=== PATIENT | female | born 1940 | race Caucasian/White ===

== ENCOUNTER 2019-03-18 14:55 | Outpatient (CLI) | payer MEDICARE, MEDICAID, SELFPAY ==
--- NOTE | 2019-03-18 15:12 | XRR_ITS ---
PROCEDURE INFORMATION: Exam: XR Chest, 2 Views Exam date and time: 03/18/2019 3:13 PM Age: 78 years old Clinical indication: Cough TECHNIQUE: Imaging protocol: XR of the chest Views: 2 views. COMPARISON: No relevant prior studies available. FINDINGS: Lungs: Unremarkable. No consolidation. Pleural space: Unremarkable. No pleural effusion. No pneumothorax. Heart/Mediastinum: Unremarkable. No cardiomegaly. Bones/joints: Unremarkable. XR/XR chest 2V* [id number] IMPRESSION: No acute findings.
== END 2019-03-18 14:56 | disposition home or self-care (01) ==
LOC: RAD 15:08
PROVIDERS: Family Provider Nurse Practitioner; PCP Nurse Practitioner; Visit Provider Nurse Practitioner
DX: R05 Cough (principal)
CPT/HCPCS: 71046

== ENCOUNTER → 2019-10-14 12:22 | Outpatient (BNVA) | payer MEDICARE, MEDICAID, SELFPAY | PROVIDERS: Family Provider Nurse Practitioner; PCP Nurse Practitioner; Visit Provider Family Medicine | DX: J45.51 Severe persistent asthma with (acute) exacerbation (principal); I10 Essential (primary) hypertension; E11.9 Type 2 diabetes mellitus without complications; J43.9 Emphysema, unspecified; R06.02 Shortness of breath | CPT/HCPCS: 36415; 71046; 80053; 83036; 85025 ==

== ENCOUNTER → 2021-06-01 15:49 | Outpatient (BNVA) | payer MEDICARE, MEDICAID, SELFPAY | PROVIDERS: Family Provider Nurse Practitioner; PCP Nurse Practitioner; Visit Provider Obstetrics & Gynecology | DX: N95.0 Postmenopausal bleeding (principal); N85.4 Malposition of uterus | CPT/HCPCS: 76830 ==

== ENCOUNTER → 2021-06-08 16:51 | Outpatient (BNVA) | payer MEDICARE, MEDICAID, SELFPAY | PROVIDERS: Family Provider Nurse Practitioner; PCP Nurse Practitioner; Visit Provider Obstetrics & Gynecology | DX: N95.0 Postmenopausal bleeding (principal); Z01.812 Encounter for preprocedural laboratory examination | CPT/HCPCS: 80053; 81000; 85025; 86850; 86900 ==

== ENCOUNTER 2021-06-17 06:40 | Day surgery (SDC) | payer MEDICARE, MEDICAID, SELFPAY ==
[2021-06-17] VITALS (10 sets, daily range): BP systolic 151–197; BP diastolic 75–102; PULSE 59–78; RESP 14–18; TEMP 36.5–37.1; O2SAT 90–98
--- NOTE | 2021-06-17 07:59 | ANES.PREANE2 ---
Pre-Anesthetic Assessment Height/Weight: Height 1.73 m Weight 99.79 kg Temp Pulse Resp BP Pulse Ox 97.7 F 62 16 161/84 95 06/17/21 07:25 06/17/21 07:25 06/17/21 07:25 06/17/21 07:25 06/17/21 07:25 Operation Date: 06/17/21 08:50 Proposed Procedures p Hysteroscopy, D&C w/Myosure [id number]/post menopausal bleeding N95.0(Not Applicable) - Carlos Nicole MD Familial anesthetic complications: NOne Was Beta Vy taken within 24 hours: N/A Was Clonidine taken within 24 hours: N/A Last intake: > 8hrs Social No alcohol and No tobacco second hand smoker Exam alert, oriented x 3, clear to auscultation bilaterally and regular rate & rhythm Airway Mallampati: Class II Dentition: false Pulmonary Chronic Obstructive Pulmonary Disease (Had COPD/Asthma attack over a year ago per patient, doing well with lungs since that time) CV/HEM Hypertension None reported Hepatic None reported GI None reported Metabolic Diabetes Mellitus [facility] None reported Neuropsych None reported Anesthetic Plan ASA status: 2 Anesthesia: General Risk of > 500 ml blood loss (7ml/kg in children): No Medications/Allergies Home Medications Medication Instructions Recorded Confirmed Last Taken Type albuterol sulfate 90 mcg/actuation 2 puff INHALATION Q6H PRN 10/14/19 06/17/21 06/16/21 History aerosol inhaler (ProAir HFA) alprazolam 0.5 mg tablet (Xanax) 0.5 mg PO .at HS PRN tab 10/14/19 06/17/21 06/16/21 20:00 History amlodipine 5 mg tablet 5 mg PO DAILY 10/14/19 06/17/21 06/16/21 08:00 History cetirizine 10 mg tablet (All Day 10 mg PO DAILY PRN tab 10/14/19 06/17/21 06/15/21 History Allergy (cetirizine)) ergocalciferol (vitamin D2) 1,250 1,250 mcg PO .week cap 10/14/19 06/17/21 06/10/21 History mcg (50,000 unit) capsule furosemide 20 mg tablet 20 mg PO DAILY 10/14/19 06/17/2106/16/22 08:00 History metformin 1,000 mg tablet 1,000 mg PO BID 10/14/19 06/17/21 06/16/21 08:00 History mirabegron 25 mg tablet,extended 25 mg PO DAILY 10/14/19 06/17/21 06/16/21 History release 24 hr (Myrbetriq) olmesartan 40 1 tab PO DAILY 10/14/19 06/17/21 06/16/21 08:00 History mg-hydrochlorothiazide 12.5 mg tablet propranolol 80 mg tablet 80 mg PO TID 10/14/19 06/17/21 06/16/21 20:00 History semaglutide 1 mg/dose (2 mg/1.5 SUBCUT .weekly ml 11/13/19 06/08/21 06/12/21 History mL) subcutaneous pen injector (Ozempic) celecoxib 200 mg capsule (Celebrex) 200 mg PO DAILY 05/21/21 06/17/21 06/16/21 08:00 History insulin degludec [Tresiba SUBCUT DAILY 05/21/21 06/08/21 06/16/21 08:00 History FlexTouch U-200] Allergies Allergy/AdvReac Type Severity Reaction Status Date / Time Penicillins Allergy Intermediate rash Verified 06/14/21 10:49 codeine AdvReac Severe ADR-Nausea Verified 06/14/21 10:49 [facility] Anesthesia Family History (Updated 05/21/21 @ 14:47 by Mari Oliva RN) Father Clotting disorder Mother Diabetes Hypertension Heart disease Stroke Thyroid condition Family/Other Hyperlipidemia maternal aunt Hypertension maternal aunts Heart disease maternal aunt Thyroid condition maternal aunt Grandfather Diabetes maternal Denies family history of Colon cancer Ovarian cancer Breast cancer Anesthesia complication Bleeding disorder Uterine cancer Social History Smoking and tobacco status: never smoked Alcohol intake: never Data Anesthesia Cardiac Studies: No Data to Display
[2021-06-17 08:00] LABS: Glucose Point of Care 126 mg/dL (70-110)
[2021-06-17] MEDS: sodium chloride 0.9% 1,000 ML 30 ML IV (08:09)
--- NOTE | 2021-06-17 08:29 | W.PM.OPSUD ---
Surgery/Procedure H&P Update DATE OF PROCEDURE: June 17, 2021 DATE H&P PERFORMED: 06/08/21 H&P UPDATE INFORMATION: I have reviewed H&P completed within last 30 days, I have examined patient prior to procedure and No changes to prior documentation PREOP DIAGNOSIS: Postmenopausal bleeding PLANNED PROCEDURE: Operation Date: 06/17/21 08:50 Proposed Procedures p Hysteroscopy, D&C w/Myosure [id number]/post menopausal bleeding N95.0(Not Applicable) - Carlos Nicole MD
[2021-06-17] MEDS: vancomycin 1,000 MG in sodium chloride 0.9% 250 ML 250 MG IV (08:50)
[2021-06-17] MEDS: scopolamine 1.5 Patch 1 PATCH TRANSDERMA (08:57)
--- NOTE | 2021-06-17 09:41 | PM.OP ---
Operative Report Date of procedure: June 17, 2021 Pre-op diagnosis: Preop Diagnosis Postmenopausal bleeding Post-op diagnosis: Same as above Procedure done: Hysteroscopy. Hysteroscopic polypectomy via MyoSure. Specimens removed/disposition: Endometrial polyp Pathology: Endometrial polyp Surgeon: Carlos Nicole MD Estimated blood loss (mL): 10 IV fluids (mL): 400 Complications: None Findings: Multiple endometrial polyps Brief History: Mrs. Mora 80-year-old female with postmenopausal bleeding. Procedure: After informed consent, the risks included but were not limited to bleeding, infection, injury to internal organs. The patient was counseled on a possible laparotomy and on the potential need for hysterectomy. The patient expressed understanding of the risks involved, all questions were answered, and the patient consented to the procedure. The patient was taken to the operating room where general anesthesia was administered. She was placed in the dorsal lithotomy position and prepped and draped in sterile fashion. A time out procedure was performed. The patient was examined under anesthesia and found to have a normal uterus with normal adnexa. A sterile weight speculum was placed in the vagina. The uterus was then gently sounded to 10 cm, and the cervix was dilated. The 0 degrees MyoSure hysteroscope was advanced gently to the uterine fundus while visualizing the monitor. Survey of the uterine cavity showed: Endometrial polyps arising from posterior wall, the fundus shows atrophic endometrium; left ostium was visualized, and lateral wall with atrophic endometrium; right ostium visualized, and lateral wall with atrophic endometrium; anterior and posterior sosa are with atrophic endometrium; endocervical canal is normal. The MyoSure device was advanced and the direct visualization the polyps was morcellated without complication. At the end of morcellation the fluid deficit was 425 mL and was estimated at approximately 200 mL were on the floor. There was minimal bleeding noted and the tenaculum removed with goad hemostasis noted. The patient tolerated the procedure well. The patient was taken to the recovery area in stable condition.
== END 2021-06-17 11:30 | disposition home or self-care (01) ==
PROVIDERS: PCP Nurse Practitioner; Visit Provider Obstetrics & Gynecology
PROC: 0UDB8ZZ Extraction of Endometrium, Via Natural or Artificial Opening Endoscopic (ICD-10-PCS; CPT 58558; principal; 2021-06-17 08:40)
DX: N95.0 Postmenopausal bleeding (principal); J44.9 Chronic obstructive pulmonary disease, unspecified; I10 Essential (primary) hypertension; E11.9 Type 2 diabetes mellitus without complications; Z79.4 Long term (current) use of insulin; Z79.84 Long term (current) use of oral hypoglycemic drugs
CPT/HCPCS: 58558; 36416; 82962; 88305; J2704; J3010; J3370; J7030; J7050

== ENCOUNTER → 2021-08-06 10:45 | Outpatient (BNVA) | payer MEDICARE, MEDICAID, SELFPAY | PROVIDERS: PCP Nurse Practitioner; Visit Provider Obstetrics & Gynecology | DX: Z01.812 Encounter for preprocedural laboratory examination (principal); N95.0 Postmenopausal bleeding; N85.02 Endometrial intraepithelial neoplasia [EIN] | CPT/HCPCS: 80053; 81000; 85025; 86850; 86900 ==

== ENCOUNTER 2021-08-11 08:57 | Observation (INO) | payer MEDICARE, MEDICAID, SELFPAY ==
[2021-08-06 12:14] VITALS: BMI 35.1
--- NOTE | 2021-08-06 12:31 | ECG_ITS ---
[facility] Test Date: 2021-08-06 Pat Name: Ericka Mora Department: Room: Gender: Female [employer]: : 1940 Requested By: Emliio Dickson Order Number: [id number] Antony MD: Taryn Franco M.D. Measurements Intervals [place] Rate: 71 P: -66 VA: 185 QRS: -23 QRSD: 97 T: 55 QT: 407 QTc: 445 Interpretive Statements ECTOPIC ATRIAL RHYTHM BORDERLINE LEFT AXIS DEVIATION [QRS AXIS < -20] MODERATE VOLTAGE CRITERIA FOR LVH, CONSIDER NORMAL VARIANT [MEETS CRITERIA IN ONE OF: R(aVL), S(V1), R(V5), R(V5/V6)+S(V1)] MINIMAL ST DEPRESSION [0.025+ mV ST DEPRESSION] ABNORMAL RHYTHM ECG No previous ECG available for comparison Electronically Signed On 08-06-2021 23:08:43 CDT by Taryn Franco M.D. [id number]
--- NOTE | 2021-08-06 13:18 | P.ANESASSM_ITS ---
Pre-Anesthetic Assessment Height/Weight: Height 1.73 m Weight 104.78 kg Preop Diagnosis: Postmenopausal bleeding Operation Date: 08/11/21 08:25 Proposed Procedures p Total vaginal hysterectomy, bilateral salpingo-oophorectomy 53954/N95.0/N85.02(Not Applicable) - Carlos Nicole MD s Salpingo-Oophorectomy (Vaginal)(Not Applicable) - Carlos Nicole MD Familial anesthetic complications: none Was Beta Vy taken within 24 hours: Yes Was Clonidine taken within 24 hours: N/A Social No alcohol and No tobacco Exam alert, oriented x 3, clear to auscultation bilaterally and regular rate & rhythm Airway Submandibular: within normal limits Cervical ROM: Other (limited ROM) Mallampati: Class II Dentition: partials Pulmonary Asthma and Chronic Obstructive Pulmonary Disease (Emphysema ) CV/HEM Hypertension EKG 08/06/21 Interpretive Statements ECTOPIC ATRIAL RHYTHM BORDERLINE LEFT AXIS DEVIATION? [QRS AXIS < -20] MODERATE VOLTAGE CRITERIA FOR LVH, CONSIDER NORMAL VARIANT? [MEETS CRITERIA IN ONE OF: R(aVL), S(V1), R(V5), R(V5/V6)+S(V1)] MINIMAL ST DEPRESSION? [0.025+ mV ST DEPRESSION] ABNORMAL RHYTHM ECG No previous ECG available for comparison [email or web address] [id number] Abdnormal endometrial tissue Hepatic None reported GI None reported Metabolic Diabetes Mellitus Musc/skel Osteoarthritis/DJD Neuropsych None reported Anesthetic Plan ASA status: 3 (81 year old female with hx of COPD, HTN, with abnormal endometrial tissue involving cervix ) Anesthesia: Anesthesia Evaluation and General Other: We discussed risk and benefits of general anesthesia including PONV, sore throat (sometimes severe), corneal abrasion, positioning and peripheral nerve injuries, life threatening allergic reaction, post operative ICU admission requiring prolonged intubation, aspiration, stroke, heart attack, , and rare incidences of recall. Patient consents to proceed with general anesthesia. Medications/Allergies Home Medications Medication Instructions Recorded Confirmed Last Taken Type albuterol sulfate 90 mcg/actuation 2 puff INHALATION Q6H PRN 10/14/19 08/06/21 06/16/21 History aerosol inhaler (ProAir HFA) alprazolam 0.5 mg tablet (Xanax) 0.5 mg PO .at HS PRN tab 10/14/19 08/06/21 06/16/21 20:00 History amlodipine 5 mg tablet 5 mg PO DAILY 10/14/19 08/06/21 06/16/21 08:00 History cetirizine 10 mg tablet (All Day 10 mg PO DAILY PRN tab 10/14/19 08/06/21 06/15/21 History Allergy (cetirizine)) ergocalciferol (vitamin D2) 1,250 1,250 mcg PO .week cap 10/14/19 08/06/21 06/10/21 History mcg (50,000 unit) capsule furosemide 20 mg tablet 20 mg PO DAILY 10/14/19 08/06/21 06/16/21 08:00 History metformin 1,000 mg tablet 1,000 mg PO BID 10/14/19 08/06/21 06/16/21 08:00 History mirabegron 25 mg tablet,extended 25 mg PO DAILY 10/14/19 08/06/21 06/16/21 History release 24 hr (Myrbetriq) olmesartan 40 1 tab PO DAILY 10/14/19 08/06/21 06/16/21 08:00 History mg-hydrochlorothiazide 12.5 mg tablet propranolol 80 mg tablet 80 mg PO TID 10/14/19 08/06/21 06/16/21 20:00 History semaglutide 1 mg/dose (2 mg/1.5 SUBCUT .weekly ml 11/13/19 08/06/21 06/12/21 History mL) subcutaneous pen injector (Ozempic) celecoxib 200 mg capsule (Celebrex) 200 mg PO DAILY 05/21/21 08/06/21 06/16/21 08:00 History insulin degludec [Tresiba SUBCUT DAILY 05/21/21 08/06/21 06/16/21 08:00 History FlexTouch U-200] acetaminophen 325 mg capsule 325 mg PO Q4H PRN #60 cap 06/17/21 08/06/21 Unknown Rx Allergies Allergy/AdvReac Type Severity Reaction Status Date / Time Penicillins Allergy Intermediate rash Verified 08/06/21 09:38 cephalexin [From Keflex] Allergy ADR-Gastrointestinal Verified 08/06/21 12:17 Upset codeine AdvReac Severe ADR-Nausea Verified 08/06/21 09:38 PFS Anesthesia Family History Father Clotting disorder Mother Diabetes Hypertension Heart disease Stroke Thyroid condition Family/Other Hyperlipidemia maternal aunt Hypertension maternal aunts Heart disease maternal aunt Thyroid condition maternal aunt Grandfather Diabetes maternal Denies family history of Colon cancer Ovarian cancer Breast cancer Anesthesia complication Bleeding disorder Uterine cancer Social History Smoking and tobacco status: never smoked Alcohol intake: never Data Anesthesia Cardiac Studies: No Data to Display
[2021-08-11] VITALS (22 sets, daily range): BP systolic 117–166; BP diastolic 67–99; PULSE 52–92; RESP 8–18; TEMP 36.2–37; O2SAT 90–97; BMI 35.1
--- NOTE | 2021-08-11 06:31 | W.PM.OPSUD ---
Surgery/Procedure H&P Update DATE OF PROCEDURE: August 11, 2021 DATE H&P PERFORMED: 08/06/21 H&P UPDATE INFORMATION: I have reviewed H&P completed within last 30 days, I have examined patient prior to procedure and No changes to prior documentation PREOP DIAGNOSIS: Endometrial Complex hyperplasia with atypia PLANNED PROCEDURE: Operation Date: 08/11/21 07:00 Proposed Procedures p Total vaginal hysterectomy, bilateral salpingo-oophorectomy 61960/N95.0/N85.02(Not Applicable) - Carlos Nicole MD s Salpingo-Oophorectomy (Vaginal)(Not Applicable) - Carlos Nicole MD
--- NOTE | 2021-08-11 06:38 | P.ANESUD_ITS ---
Pre-Anesthetic Update Pre-Anesthetic Assessment: Date of Surgery/Procedure: 08/11/21 Preop Silvia gnosis: Endometrial Complex hyperplasia with atypia Proposed Procedure: Operation Date: 08/11/21 07:00 Proposed Procedures p Total vaginal hysterectomy, bilateral salpingo-oophorectomy 49384/N95.0/N85.02(Not Applicable) - Carlos Nicole MD s Salpingo-Oophorectomy (Vaginal)(Not Applicable) - Carlos Nicole MD Any changes to Pre-Anesthetic Assessment?: No Exam: Pre-Anes Outpt Exam: alert, oriented x 3, clear to auscultation bilaterally and regular rate & rhythm Cardiac Studies: No Data to Display
[2021-08-11] MEDS: sodium chloride 0.9% 1,000 ML 30 ML IV (06:45)
[2021-08-11 06:47] LABS: Glucose Point of Care 120 mg/dL (70-110)
[2021-08-11] MEDS: scopolamine 1.5 Patch 1 PATCH TRANSDERMA (06:55)
[2021-08-11] MEDS: enoxaparin 30 mg/0.3 mL Syringe SUBCUT (06:56)
[2021-08-11] MEDS: levofloxacin-dextrose 5 % 500 MG/100 ML PREMIX 100 MG IV (06:59)
[2021-08-11] MEDS: vancomycin 1,000 MG in sodium chloride 0.9% 250 ML 250 MG IV (07:28)
--- NOTE | 2021-08-11 08:51 | P.OP_ITS ---
Operative Report Date of procedure: August 11, 2021 Pre-op diagnosis: Preop Diagnosis Endometrial Complex hyperplasia with atypia Post-op diagnosis: Same as above Procedure done: Total vaginal hysterectomy with right salpingectomy Specimens removed/disposition: Uterus and right fallopian tube Surgeon: Carlos Nicole MD Estimated blood loss (mL): 75 IV fluids (mL): 800 Urine output (mL): 400 Complications: Adnexa not identified Procedure: After informed consent and risks, benefits, indications and alternatives reviewed with the patient was taken to the operating room. The patient was placed in dorsal lithotomy position prepped, and draped in the usual sterile fashion. The pre-procedure timeout verifying the correct patient, procedure, site and side, could not requirements was performed and acknowledge by the OR team. A Muhammad catheter was placed. A Bookwalter vaginal retractor was placed into the vagina in usual manner visualize the cervix. Cervix was grasped with a single tooth tenaculum and circumferentially infiltrated with 2% lidocaine with epinephrine. Then cervix was circumferentially incised with bovie and the bladder was dissected off the pubovesical cervical fascia anteriorly with a sponge stick and Metzenbaum scissors. The anterior peritoneal reflection was identified and the anterior cul-de-sac was entered sharply with Metzenbaum scissors. The same procedure was performed posteriorly and a posterior c olpotomy was made through the posterior cul-de-sac space without difficulty and the posterior blade of the Bookwalter vaginal retractor was advanced posteriorly into the cul-de-sac. At this time, the left and right uterosacral ligaments were isolated and ligated with 0 Vicryl. The Enseal device was placed over the uterosacral ligaments on either side and was then used in a serial fashion up through the cardinal ligaments bilaterally cross-clamped, cut, and sealed with the Enseal device. Finally, the uterine arteries were cross-clamped, cut, sealed and ligated with the Enseal device. Hemostasis was assured. The broad ligaments were then serially clamped, sealed and cut with the Enseal device on both sides. Excellent hemostasis was visualized. Both cornua were clamped, sealed and cut with the Enseal device. Then the pedicles were then suture ligated with excellent hemostasis. The uterus was excised and submitted for pathologic evaluation. No other abnormalities were noted in the pelvic cavity. Then the right side Infundibular ligament was identified. The Enseal device was then used to clamp, sealed and transcepted at middistance, again being sure to be clear of the ureter and the fallopian tube and it was removed. The same process was then attempted on the left side but adnexa could not safely be identified and technically difficult to excise. Good hemostasis was assure on both sides. The peritoneum was then closed in a pursestring fashion with 0 Vicryl suture. The vaginal cuff angles were closed with [id number] #0 Vicryl suture on both sides and transfixed with the ipsilateral cardinal and uterosacral ligaments. The remainder of the vaginal cuff was closed with #0 Vicryl in a running locked fashion. At this time, instruments were removed from the vagina at hemostasis assured. Then the Muhammad catheter was removed and cystoscope was inserted. The bladder was filled with sterile water. Complete evaluation of the bladder mucosa was performed noting no lacerations, dimpling, tears, bleeding of the mucosa or muscular layers. Both ureteral orifices were identified. Prompt excretion of urine from both ureteral orifices was noted. Cystoscope was withdrawn. Muhammad catheter was then placed yielding clear onel urine. The patient was taken out of dorsal lithotomy position and awakened from the general anesthesia. The patient tolerated the procedure well and was taken to the PACU recovery room in a stable condition. Sponge, lap, needle and instruments counts were correct x3.
[2021-08-11] MEDS: dextrose 5%-lactated ringers 1,000 ML 125 ML IV ×2 (11:14→17:42)
[2021-08-11] MEDS: ketorolac 30 mg/mL INJ IVP ×2 (11:54→19:17)
--- NOTE | 2021-08-11 13:42 | ANE.PACU2 ---
Inpatient post-anesthesia follow up: Airway intact: Yes Vital signs: Temperature 97.2 F Pulse Rate 72 Respiratory Rate 16 Blood Pressure 117/84 Pulse Oximetry 92 Oxygen Delivery Me thod Nasal Cannula Oxygen Flow Rate 3 Fraction of Inspir ed Oxygen Hydration adequate: Yes Nausea and vomiting: No Pain level: 1 Mental status: Baseline
[2021-08-11 15:26] LABS: Glucose Point of Care 202 mg/dL (70-110)
[2021-08-11] MEDS: insulin lispro 100 unit/1 mL SUBCUT ×2 (16:10→22:37)
[2021-08-11] MEDS: docusate sodium 100 mg Capsule PO (17:41)
[2021-08-11 22:29] LABS: Glucose Point of Care 179 mg/dL (70-110)
[2021-08-11] MEDS: PROPRANOLOL 80 MG 80 EACH PO (22:45)
[2021-08-12] MEDS: ketorolac 30 mg/mL INJ IVP (01:26)
[2021-08-12] MEDS: dextrose 5%-lactated ringers 1,000 ML 125 ML IV (01:26)
[2021-08-12 04:55] VITALS: BP 146/78; PULSE 72; RESP 16; TEMP 36.9; O2SAT 96
[2021-08-12 05:35] LABS: Hematocrit 33.1 % (37.0-47.0); Mean Corpuscular HGB Conc 33.2 g/dL (30.0-36.0); Mean Corpuscular Hemoglobin 27.4 pg (28.0-34.0); Mean Corpuscular Volume 82.5 fl (81-99); Mean Platelet Volume 10.2 fL (7.4-10.4); Platelet Count 192 10^3/cmm (130-400); Red Blood Count 4.01 10^6/uL (4.1-5.3); Red Cell Distribution Width 14.1 % (12.1-15.1); White Blood Count 7.5 10^3/uL (4.0-10.0)
[2021-08-12] MEDS: docusate sodium 100 mg Capsule PO (09:31)
[2021-08-12] MEDS: ibuprofen 800 mg tablet PO (09:32)
[2021-08-12] MEDS: PROPRANOLOL 80 MG 80 EACH PO (09:55)
[2021-08-12] MEDS: PAROXETINE HCL 40 MG 40 EACH PO (09:56)
--- NOTE | 2021-08-12 09:57 | PM.OBGYDC ---
Discharge Providers [employer] Date of Admission: 08/11/21 08:57 Date of Discharge: 08/12/21 Attending Provider at Admission: Carlos Nicole MD Attending Provider at Discharge: Carlos Nicole MD Primary Care Provider: CATHIE Shafer Reason for Visit Reason for Visit: Brief History: 81-year-old female with a history of postmenopausal bleeding status post hysteroscopy and D&C with a pathology report a complex hyperplasia with atypia. Hospital Course Hospital Course Mrs. Mora admitted for planned total vaginal hysterectomy with bilateral salpingo-oophorectomy. A total vaginal hysterectomy and right salpingectomy was performed. Without complications. Oophorectomy was not able to be performed due to not being able to safely identify ovarian tissue. Postop overnight observation has been uneventful. Tolerating diet well. Ambulating without difficulty. She is afebrile and hemodynamically stable postoperative day 1. Physical Exam Narrative: GA: Alert and oriented ?3. HEENT: WNL. Heart: Regular rate and rhythm. Lungs: Clear to auscultation bilaterally. Abdomen: Bowel sounds present, nontender. BINDERY WORKER: scant bleeding. Extremities: No edema, no cyanosis, no calves pain. Urinary Catheter Management: Muhammad: Cath Placed During This Visit: yes, but has since been removed by the nurse Reason for Continuing Indwelling Catheter: Decision to DC Catheter Urinary Catheter Date of Insertion: 08/11/21 Urinary Catheter Time of Insertion: 07:28 Date Urinary Catheter Removed: 08/12/21 Time Urinary Catheter Discontinued: 06:50 History History History 1 Term 1 Miscarriages/Ectopic 0 0 Living Children 1 Discharge Data Studies Completed and Pending Pending at discharge Category Date Time Status ES surgery / GI images Routine Exams 08/11/21 07:41 Taken Pathology: Surgical [PTH] Routine Pth 08/11/21 09:00 Received Laboratory Results WBC 7.5 10^3/uL (4.0-10.0) 08/12/21 05:22 RBC 4.01 10^6/uL (4.1-5.3) L 08/12/21 05:22 Hgb 11.0 g/dL (11.5-15.3) L 08/12/21 05:22 Hct 33.1 % (37.0-47.0) L 08/12/21 05:22 MCV 82.5 fl (81-99) 08/12/21 05:22 MCH 27.4 pg (28.0-34.0) L 08/12/21 05:22 MCHC 33.2 g/dL (30.0-36.0) 08/12/21 05:22 RDW 14.1 % (12.1-15.1) 08/12/21 05:22 Plt Count 192 10^3/cmm (130-400) 08/12/21 05:22 MPV 10.2 fL (7.4-10.4) 08/12/21 05:22 POC Glucose 179 mg/dL (70-110) H 08/11/21 22:11 Vitals Last Vital Signs Temp 98.4 F 08/12/21 04:55 Pulse 72 08/12/21 04:55 Resp 16 08/12/21 04:55 BP 146/78 08/12/21 04:55 Pulse Ox 96 08/12/21 04:55 Discharge Plan Discharge Patient Disposition: Home Condition: Stable Prescriptions: New hydrocodone-acetaminophen 5-325 mg tablet 1 tab PO Q4H PRN (Reason: pain) Qty: 20 0RF docusate sodium [Colace] 100 mg capsule 100 mg PO BID Qty: 60 0RF acetaminophen 325 mg capsule 325 mg PO Q4H PRN (Reason: fever or pain) Qty: 60 0RF ibuprofen 800 mg tablet 800 mg PO TID PRN (Reason: pain) Qty: 60 0RF Continued alprazolam [Xanax] 0.5 mg tablet 0.5 mg PO .at HS PRN (Reason: Anxiety) 0RF propranolol 80 mg tablet 80 mg PO TID 0RF metformin 1,000 mg tablet 1,000 mg PO BID 0RF albuterol sulfate [ProAir HFA] 90 mcg/actuation HFA aerosol inhaler 2 puff INHALATION Q6H PRN (Reason: Shortness Of Breath) 0RF ergocalciferol (vitamin D2) 1,250 mcg (50,000 unit) capsule 1,250 mcg PO .week 0RF furosemide 20 mg tablet 20 mg PO DAILY 0RF olmesartan-hydrochlorothiazide 40-12.5 mg tablet 1 tab PO DAILY 0RF amlodipine 5 mg tablet 5 mg PO DAILY 0RF cetirizine [All Day Allergy (cetirizine)] 10 mg tablet 10 mg PO DAILY PRN (Reason: Allergic Symptoms) 0RF Myrbetriq 25 mg tablet extended release 24 hr 25 mg PO DAILY 0RF Ozempic 1 mg/dose (2 mg/1.5 mL) pen injector 1 mg SUBCUT .weekly 0RF insulin degludec 64 units SUBCUT DAILY 0RF celecoxib [Celebrex] 200 mg capsule 200 mg PO DAILY 0RF acetaminophen 325 mg capsule 325 mg PO Q4H PRN (Reason: fever or pain) Qty: 60 0RF paroxetine HCl 40 mg Tablet 40 mg PO DAILY 0RF Rx Instructions: PT'S OWN MED potassium chloride 10 mEq Capsule, Extended Release 10 meq PO DAILY 0RF Discharge Orders: Discharge Order (Routine); Ordered 08/12/21 Ordered By: Carlos Nicole Discharge Diet: Usual diet Discharge Activity: Limit activity as instructed Patient Instructions: Cystoscopy (GEN), Vaginal Hysterectomy (GEN), OB Discharge Report, OB Food/Drug Interaction Guide, Opioid Safety Discharge Attestations [employer] Time Spent in Discharge Care*: greater than 30 min Coding Level of Care Code Acute Nematologist for Magdaleno Ramirez
[2021-08-12 10:00] VITALS: BP 130/75; PULSE 72; RESP 17; TEMP 36.8; O2SAT 97
[2021-08-12 10:07] LABS: Glucose Point of Care 166 mg/dL (70-110)
[2021-08-12] MEDS: insulin lispro 100 unit/1 mL SUBCUT (10:14)
[2021-08-12 11:59] VITALS: BP 145/67; PULSE 82; RESP 17; TEMP 36.9; O2SAT 97
== END 2021-08-12 12:00 | disposition home or self-care (01) ==
PROVIDERS: Admitting Provider Obstetrics & Gynecology; PCP Nurse Practitioner; Visit Provider Obstetrics & Gynecology
PROC: (CPT 58262; principal; 2021-08-11 07:00)
PROC: (CPT 58720; 2021-08-11 07:00)
PROC: 0TJB8ZZ Inspection of Bladder, Via Natural or Artificial Opening Endoscopic (ICD-10-PCS; CPT 52000; 2021-08-11 07:00)
DX: N85.01 Benign endometrial hyperplasia (principal); J43.8 Other emphysema; E11.9 Type 2 diabetes mellitus without complications; I10 Essential (primary) hypertension; Z79.4 Long term (current) use of insulin; Z79.84 Long term (current) use of oral hypoglycemic drugs
CPT/HCPCS: 58262; 36415; 36416; 82962; 85027; 88307; 93005; 96372; G0378; J0330; J1100; J1170; J1200; J1650; J1815; J1885; J1956; J2405; J2704; J2710; J3010; J3370; J3490; J7030; J7050; Q9968